=== PATIENT | female | born 1955 | race Caucasian/White ===

== ENCOUNTER 2023-11-04 11:23 | Outpatient (RCR) | payer MEDICARE, BC, SELFPAY | END 2024-05-02 23:59 | disposition home or self-care (01) | LOC: CCIC 11:23 | PROVIDERS: PCP Physician Assistant; Visit Provider Radiology Radiation Oncology | DX: C21.1 Malignant neoplasm of anal canal (principal) | CPT/HCPCS: 99211 ==